=== PATIENT | male | born 1960 | race Two or more races ===

== ENCOUNTER 2017-01-06 21:20 | Emergency (ER) | payer BC, OTHER ==
[2017-01-06 21:44] VITALS: BP 148/87; PULSE 97; TEMP 98.8; BMI 32.1
--- NOTE | 2017-01-06 21:55 | PDOC ---
History of Present Illness - General Chief Complaint: Cold Symptoms Stated Complaint: COLD SYMPTOMS Time Seen by Provider: 01/06/17 21:48 History Source: Patient Exam Limitations: No Limitations - History of Present Illness Initial Comments: CHIEF COMPLAINT: 56 y/o afebrile male with no significant PMH c/o fever today. HISTORY OF PRESENT ILLNESS: The patient states he has been fasting for 2 weeks. This morning he started feeling warm at work. When he got home he had a temp of 103.7. He took naproxen and states the fever went away. He denies WALDRON , neck pain, earache, cough, runny nose, sore throat, n/v/d, CP, SOB, abd pain, back pain. Vital signs on arrival are within normal limits. REVIEW OF SYSTEMS: GENERAL/CONSTITUTIONAL: +fever to 103.7 HEAD, EYES, EARS, NOSE AND THROAT: No change in vision. No ear pain or discharge. No sore throat. CARDIOVASCULAR: No chest pain or shortness of breath. RESPIRATORY: No cough, wheezing, or hemoptysis. GASTROINTESTINAL: No abd pain, nausea, vomiting, diarrhea. GENITOURINARY: No dysuria, frequency, or change in urination. MUSCULOSKELETAL: No joint or muscle swelling or pain. No neck or back pain. SKIN: No rash or easy bruising. NEUROLOGIC: No headache, vertigo, loss of consciousness, or loss of sensation. PHYSICAL EXAM: GENERAL: The patient is awake, alert, and fully oriented, in no acute distress. He is well appearing and ambulatory. HEAD: Normal with no signs of trauma. NECK: No meningismus. ENT: Pupils equal, round and reactive to light, extraocular movements intact, sclera anicteric, conjunctiva clear. TMs normal b/l. No tonsilar erythema, edema or exudate. No cough in the ER. LUNGS: Clear to auscultation bilaterally. Normal excursion. No respiratory distress or use of accessory muscles. CV: RRR, S1/S2, no MRG. Cap refill < 2 sec. ABDOMEN: Soft, non-distended, non-tender even to deep palpation, no hepatomegaly or splenomegaly, no masses. EXTREMITIES: Normal range of motion, no edema. NEUROLOGICAL: Normal speech, normal gait. CN II-XII grossly intact. PSYCH: Normal mood, normal affect. SKIN: Warm, dry, normal turgor, no rashes or lesions noted. Past History - Past Medical History Allergies/Adverse Reactions: Allergies Allergy/AdvReac Type Severity Reaction Status Date / Time No Known Allergies Allergy Verified 01/06/17 21:37 Home Medications: Ambulatory Orders Ibuprofen [Advil -] 600 mg PO QID #30 tablet 01/06/17 HTN: Yes (Borderline) Hypercholesterolemia: Yes - Psycho/Social/Smoking Cessation Hx Suicidal Ideation: No Smoking History: Never smoked Information on smoking cessation initiated: No Hx Alcohol Use: No Drug/Substance Use Hx: No Substance Use Type: None *Physical Exam - Vital Signs Last Vital Signs Temp Pulse Resp BP Pulse Ox 98.8 F 97 H 20 148/87 98 01/06/17 21:40 01/06/17 21:40 01/06/17 21:40 01/06/17 21:40 01/06/17 21:40 Medical Decision Making - Medical Decision Making A/P: 56 y/o male with fever today that has broken after taking naproxen. The patient has no other symptoms. His physical exam is unremarkable. I suspect viral illness. Suggested he take advil every 6 hours for fever and tylenol in between if needed. Strongly encouraged him to drink plenty of fluids, even if it means breaking his fast. Instructed him to get plenty of rest and return to the ER immediately with any worsening or concerning symptoms. The patient verbalizes understanding of all instructions, has no further questions and is awaiting discharge. *DC/Admit/Observation/Transfer Diagnosis at time of Disposition: Viral illness - Discharge Dispostion Disposition: HOME Condition at time of disposition: Good - Prescriptions Prescriptions: Ibuprofen [Advil -] 600 mg PO QID #30 tablet - Patient Instructions Printed Discharge Instructions: DI for Viral Syndrome Additional Instructions: Discharge Instructions: -Take 600mg of Advil every 6 hours for fever -Take Tylenol if needed also for fever every 4 hours -Drink plenty of fluids -Get lots of rest -Return to the ER with any worsening or concerning symptoms
== END 2017-01-06 22:17 | disposition home or self-care (01) ==
LOC: JERFT 21:20
DX: B34.9 Viral infection, unspecified (principal); E78.00 Pure hypercholesterolemia, unspecified
CPT/HCPCS: 99281-25

== ENCOUNTER 2020-11-19 06:23 | Day surgery (SDC) | payer BC, OTHER ==
[2020-11-13 10:25] VITALS: BMI 32.8
[2020-11-19] MEDS ORDERED: LIDOCAINE HCL 2% (20ML MULTI-DOSE VIAL) ONE (07:23)
[2020-11-19] MEDS ORDERED: MIDAZOLAM HCL 2 MG/2 ML SINGLE DOSE VIAL ONE (07:41)
[2020-11-19] MEDS ORDERED: SUCCINYLCHOLINE CHLORIDE 200 MG/10 ML SYRINGE ONE (07:41)
[2020-11-19] MEDS ORDERED: PROPOFOL 20 ML ONE ×2 (07:41)
[2020-11-19] MEDS ORDERED: ceFAZolin SODIUM 1 GM VIAL ONE (08:04)
[2020-11-19] MEDS ORDERED: DEXAMETHASONE SOD PHOSPHATE 4 MG/1 ML VIAL ONE (08:06)
[2020-11-19] MEDS ORDERED: ONDANSETRON 4 MG/2 ML VIAL ONE (08:06)
[2020-11-19 14:50] VITALS: TEMP 97.3
[2020-11-19 14:54] VITALS: BP 136/88; PULSE 65
== END 2020-11-19 09:00 | disposition home or self-care (01) ==
LOC: FASU 06:23
PROVIDERS: ATTEND Orthopaedic Surgery Hand Surgery
PROC: 0LN70ZZ Release Right Hand Tendon, Open Approach (ICD-10-PCS; principal; 2020-11-19 08:20)
DX: M65.331 Trigger finger, right middle finger (principal)

== ENCOUNTER 2021-03-01 08:33 | Emergency (ER) | payer BC, OTHER ==
[2021-03-01 09:06] VITALS: BMI 32.8
[2021-03-01] MEDS ORDERED: SODIUM CHLORIDE 0.9% 500 ML INFUS.BAG IV ONE (09:40)
[2021-03-01] MEDS ORDERED: MECLIZINE HCL 25 MG TABLET (FP) PO ONE (09:54)
[2021-03-01] MEDS ORDERED: MECLIZINE HCL 25 MG TABLET (FP) ONE (10:05)
[2021-03-01 10:13] LABS: EOS % 3.8 % (0-4.5); HEMATOCRIT 46.3 % (35.4-49); HEMOGLOBIN 16.1 GM/dL (11.7-16.9); LYMPH % 34.3 % (8-40); MCH 29.4 pg (25.7-33.7); MCHC 34.7 g/dl (32.0-35.9); MEAN CELL VOLUME 84.8 fl (80-96); MEAN PLT VOLUME 10.4 fl (7.5-11.1); MONO % 7.6 % (3.8-10.2); NEUT % 53.3 % (42.8-82.8); PLATELET COUNT 134 10^3/uL (134-434); RBC 5.46 M/mm3 (4.00-5.60); RDW 13.5 % (11.9-15.9); WHITE BLOOD COUNT 5.1 K/mm3 (4.0-10.0)
[2021-03-01 10:28] LABS: CHLORIDE 108 mmol/L (98-107); SODIUM 141 mmol/L (136-145)
[2021-03-01 10:30] LABS: ALBUMIN 4.1 g/dl (3.4-5.0); CALCIUM 8.6 mg/dL (8.5-10.1)
[2021-03-01 10:31] LABS: ANION GAP 6 MMOL/L (8-16); BLOOD UREA NITROGEN 14.8 mg/dL (7-18); CO2 27 mmol/L (21-32); GLUCOSE,RANDOM 105 mg/dL (74-106)
[2021-03-01 10:34] LABS: SGOT/AST 19 U/L (15-37); SGPT/ALT 27 U/L (13-61)
[2021-03-01 10:35] LABS: TOT PROT 7.2 g/dl (6.4-8.2)
[2021-03-01 10:37] LABS: ALK PHOS 79 U/L (45-117)
[2021-03-01 11:26] VITALS: BP 125/60; PULSE 66; TEMP 98.2
[2021-03-02 14:07] LABS: SARS-CoV-2 NAA Not Detected (Not Detected)
== END 2021-03-01 11:26 | disposition home or self-care (01) ==
LOC: JER 08:33
DX: R42 Dizziness and giddiness (principal); R09.81 Nasal congestion
CPT/HCPCS: 36415; 80053; 84484; 85025; 93005; 93010; 99284-25; C9803; U0003; U0005

== ENCOUNTER 2021-04-27 08:24 | Day surgery (SDC) | payer BC, OTHER ==
[2021-04-22 16:25] VITALS: BMI 33.0
[2021-04-27 10:54] VITALS: TEMP 96.6
[2021-04-27 10:56] VITALS: BP 144/80; PULSE 60
== END 2021-04-27 11:13 | disposition home or self-care (01) ==
LOC: FASU-ENDO 08:24
PROVIDERS: ATTEND Internal Medicine Gastroenterology
PROC: 0DB98ZX Excision of Duodenum, Via Natural or Artificial Opening Endoscopic, Diagnostic (ICD-10-PCS; 2021-04-27)
PROC: 0DB68ZX Excision of Stomach, Via Natural or Artificial Opening Endoscopic, Diagnostic (ICD-10-PCS; 2021-04-27)
PROC: 0DJD8ZZ Inspection of Lower Intestinal Tract, Via Natural or Artificial Opening Endoscopic (ICD-10-PCS; principal; 2021-04-27 09:56)
DX: Z12.11 Encounter for screening for malignant neoplasm of colon (principal); K29.50 Unspecified chronic gastritis without bleeding; R12 Heartburn
CPT/HCPCS: 88305-TC; 88342-TC

== ENCOUNTER 2023-04-07 06:04 | Day surgery (SDC) | payer BC, OTHER ==
[2023-03-30 12:08] VITALS: BMI 31.9
[2023-04-07] MEDS ORDERED: EPINEPHrine 1:1,000 1,000 MCG/ML ML ONE (07:06)
[2023-04-07] MEDS ORDERED: BUPIVACAINE HCL/PF 0.5% (5 MG/ML) 30 ML VIAL IJ ONE (07:15)
[2023-04-07] MEDS ORDERED: DEXAMETHASONE SOD PHOSPHATE/PF 10 MG/ML SDV ONE (07:15)
[2023-04-07] MEDS ORDERED: MIDAZOLAM HCL 2 MG/2 ML SINGLE DOSE VIAL ONE ×2 (07:15→10:00)
[2023-04-07] MEDS ORDERED: PROPOFOL 40 ML ONE (07:24)
[2023-04-07] MEDS ORDERED: ONDANSETRON 4 MG/2 ML VIAL ONE (08:10)
[2023-04-07] MEDS ORDERED: ceFAZolin SODIUM 1 GM VIAL ONE (08:10)
[2023-04-07] MEDS ORDERED: DEXAMETHASONE SOD PHOSPHATE 4 MG/1 ML VIAL ONE (08:10)
[2023-04-07] MEDS ORDERED: ENALAPRILAT DIHYDRATE 2.5 MG/2 ML VIAL IVPB ONE (08:24)
[2023-04-07] MEDS ORDERED: TRANEXAMIC ACID 1000 MG/10 ML VIAL ONE (09:11)
[2023-04-07] MEDS ORDERED: KETOROLAC TROMETHAMINE 30 MG/1 ML VIAL ONE (10:02)
[2023-04-07] MEDS ORDERED: ONDANSETRON 4 MG/2 ML VIAL IVPUSH PRN (10:23)
[2023-04-07] MEDS ORDERED: oxyCODONE HCL 5 MG TABLET PO PRN (10:23)
[2023-04-07] MEDS ORDERED: LACTATED RINGERS SOLUTION 1,000 ML IV SCH (10:30)
[2023-04-07 11:25] VITALS: PULSE 87; RESP 16; TEMP 97.4
[2023-04-07 11:54] VITALS: BP 143/85
== END 2023-04-07 12:14 | disposition home or self-care (01) ==
LOC: FASU 06:04
PROVIDERS: ATTEND Orthopaedic Surgery Sports Medicine
PROC: 0RNJ4ZZ Release Right Shoulder Joint, Percutaneous Endoscopic Approach (ICD-10-PCS; principal; 2023-04-07 08:32)
DX: M75.121 Complete rotator cuff tear or rupture of right shoulder, not specified as traumatic (principal); M24.111 Other articular cartilage disorders, right shoulder; M65.811 Other synovitis and tenosynovitis, right shoulder
CPT/HCPCS: 94760; C1713; C1763; C1883